=== PATIENT | female | born 1935 | race Caucasian/White ===

== ENCOUNTER → 2017-08-23 | Outpatient (CLI) | payer MEDICARE ==
--- NOTE | 2017-08-23 14:31 | Diagnostic Imaging Report ---
PROCEDURE: X-RAY CHEST, TWO VIEWS COMPARISON: [facility], CT, CT CHEST WO, 10/13/2011, 7:34. INDICATIONS: BRONCHITIS, COUGH FINDINGS: LUNGS: The lungs are diffusely hyperinflated at baseline. The right lung is clear. There are spherical masses in the left perihilar region and the mid left lower lobe. These measure up to [address], a pulmonary nodule in the left lower lobe was present measuring 16 mm. The pulmonary vascular markings are normal. PLEURA: The costophrenic angles are sharp. No pneumothorax. HEART \T\ MEDIASTINUM: The heart is within normal size-limits. The aorta is ectatic with calcification of the arch. BONES \T\ SOFT TISSUES: Diffuse demineralization. No focal osseous lesions. CONCLUSION: 1. Two masses in the left lung are concerning for neoplasm. Recommend CT of the chest with intravenous contrast for further characterization. 2. Pulmonary hyperinflation consistent with COPD. Dictated by: Sanam Dorsey M.D. on 08/23/2017 at 14:31 Electronically approved by: Sanam Dorsey M.D. on 08/23/2017 at 14:31
== END ==
LOC: RAD 12:45
PROVIDERS: ATTEND Family Medicine
DX: J40 Bronchitis, not specified as acute or chronic (principal)
CPT/HCPCS: 71046

== ENCOUNTER → 2017-09-10 | Outpatient (CLI) | payer MEDICARE ==
[~2017-09-10] MED LIST: IOPAMIDOL 370 MG/ML 200 ML INFUS..BTL INJ ONE; SODIUM CHLORIDE 0.9% 50ML 50 ML ONE
[2017-09-10 15:38] LABS: BLOOD UREA NITROGEN 13 mg/dL (7-26); BUN/CREATININE RATIO 17 (6-25); CREATININE, SERUM 0.78 mg/dL (0.57-1.11); EST GLOMERULAR FILTRATION RATE > 60 ML/MIN (60-)
--- NOTE | 2017-09-10 20:15 | Diagnostic Imaging Report ---
CT chest with enhancement CPT code: 71800 INDICATION: Lung mass TECHNIQUE: 5 mm collimation axial images obtained from the thoracic inlet to the level of the diaphragm following uneventful administration of 80 cc of low osmolar, nonionic intravenous contrast. RADIATION DOSE: Total DLP: 433.05 mGy*cm Estimated effective dose: (DLP x 0.015 x size factor) mSv CTDIvol has been reviewed. It is below the limits set by the Radiation Protocol Committee (RPC). COMPARISON: CT chest 10/13/2011, CT chest 04/01/2011. CHEST FINDINGS: Lymph nodes: No enlarged axillary or supraclavicular lymph nodes. Subcarinal lymph node measures 1.7 x 2.3 cm. Left hilar lymph node measures 3.4 x 4.0 cm. Lymph nodes in the AP window measure up to 10 mm. No enlarged right hilar lymph nodes. Thyroid: Not visualized. Mediastinum: The ascending aorta measures 3.5 cm in diameter. The main pulmonary artery measures 2.1 cm in diameter. There is narrowing of the left lower lobe pulmonary artery secondary to tumor. No filling defect to suggest embolus. The heart is mildly enlarged. No pericardial effusion. The esophagus is normal. Lungs: Right lung: Diffusely hyperinflated. Mild apical pleural-parenchymal thickening has progressed in the interim. 3 mm anterior upper lobe nodule (series 4, image 33) is new. No consolidation. Left lung: Spiculated mass in the lower lobe now measures 3.0 x 4.2 cm (previously, 1.7 cm). A new nodule in the anterior upper lobe (image 49) measures 4 mm. Nodule adjacent to or within an upper lobe bronchus measures 4 x 7 mm (previously, 3 x 6 mm). There is subsegmental atelectasis of the lingula. Airways: The proximal lingular bronchus is almost occluded due to left hilar lymphadenopathy. More distally, the lingular bronchus is occluded secondary to tumor. There are calcifications throughout the tracheobronchial tree. Pleura: There is tenting of the pleura adjacent to the left lower lobe mass suggestive of tumor invasion. No pleural effusions. ABDOMEN: No mass in the visualized portions of the liver or spleen. No adrenal mass. Visualized portions of the gallbladder, and pancreas are normal. A low attenuating lesion in the posterior upper pole of the right kidney measures 7 mm and is too small to characterize. Bones: There are no lytic or blastic lesions. There is mild scoliosis of the midthoracic spine. Schmorl's node in T10 is stable. IMPRESSION: 1. Marked enlargement of left lower lobe mass with new mediastinal and hilar lymphadenopathy consistent with metastasis. 2. Hilar lymphadenopathy/tumor invasion now result in occlusion of the lingular bronchus and subsegmental atelectasis of the lingula. 3. New subcentimeter upper lobe nodules are concerning for metastasis. 4. Aortic ectasia. No pulmonary artery hypertension. 5. Low attenuating lesion in the right kidney is too small to characterize. Recommend correlation with renal ultrasound. No solid mass in the upper abdomen to suggest metastasis. Signed by: Dr. Sanam Dorsey MD on 09/10/2017 8:12 PM
== END ==
LOC: CT 15:02
PROVIDERS: ATTEND Family Medicine
DX: R91.8 Other nonspecific abnormal finding of lung field (principal)
CPT/HCPCS: 36415; 71260; 82565; 84520; Q9967

== ENCOUNTER → 2020-05-08 | Outpatient (CLI) | payer MEDICARE ==
--- NOTE | 2020-05-09 08:40 | Diagnostic Imaging Report ---
Exam: Bone mineral density study. History: Postmenopausal female. Comparison: None Discussion: Evaluation of the left hip and lumbar spine was performed utilizing DEXA Hologic bone densitometer. The study is technically adequate. The patient's fracture risk is compared to an age-matched control. Left femoral neck bone mineral density: 0.676 g/cm2, T-score is -3.4, Z-score is -0.6. No previous comparison. Lumbar spine total bone mineral density: 0.385 gm/cm2, T-score is -4.2, Z-score is -1.8. No previous comparison. Impression: Bone mineralization by WHO Classification using T score is osteoporosis, fracture risk is high. Treatment is advised. <T score: NL = -1 or higher Osteopenia = -1 to -2.5 Osteoporosis = -2.5 or lower Z score: < - 1.5 concerning for path> Recommendations: Medical evaluation for secondary causes of low bone mineral density may be appropriate. Correlate clinically for the necessity and timing of the next bone mineral density study. National Osteoporosis Foundation recommendations: Initiate therapy to reduce fracture risk in postmenopausal women with -BMD t-scores below -2 by central DXA with no risk factors -BMD t-scores below -1.5 by central DXA with one or more risk factors (first deg relative with hip fracture, prior personal fracture, low body weight, smoking) -A prior vertebral or hip fracture AACE (Clinical Endocrinology) recommends treating the following: Postmenopausal women who have osteoporosis as diagnosed by fragility fractures or t scores -2.5 or below Postmenopausal women who have risk factors (including fh of hip fracture, low body weight, smoking, risk of falling, high bone turnover, advancing age) and borderline low BMD T scores of -1.5 or below Adequate intake of calcium (at least 1200mg/day) and vitamin D (400-800 IU/day). Regular weight bearing and muscle - strengthening exercises Avoid smoking and excessive alcohol Signed by: Sinan Morris on 05/09/2020 8:37 AM
== END ==
LOC: DX 12:48
PROVIDERS: ATTEND Family Medicine
DX: M81.0 Age-related osteoporosis without current pathological fracture (principal)
CPT/HCPCS: 77080

== ENCOUNTER → 2021-08-20 | Outpatient (CLI) | payer MEDICARE | LOC: RAD 11:02 | PROVIDERS: ATTEND Family Medicine | DX: S50.02XA Contusion of left elbow, initial encounter (principal) ==

== ENCOUNTER → 2022-06-22 | Outpatient (CLI) | payer MEDICARE | LOC: DX 09:37 | PROVIDERS: ATTEND Family Medicine | DX: M81.0 Age-related osteoporosis without current pathological fracture (principal) | CPT/HCPCS: 77080 ==